=== PATIENT | female | born 2000 | race Caucasian/White ===

== ENCOUNTER → 2022-09-15 | Outpatient (REF) | LOC: M LABSMTC 14:09 | PROVIDERS: ATTEND Family Medicine | DX: Z11.52 Encounter for screening for COVID-19 (principal) ==

== ENCOUNTER → 2022-12-15 | Outpatient (REF) | payer OTHER | LOC: M LAB REF 16:24 | PROVIDERS: ATTEND Physician Assistant | DX: J02.9 Acute pharyngitis, unspecified (principal) ==